=== PATIENT | female | born 2000 | race Caucasian/White ===

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

== ENCOUNTER → 2020-03-14 14:08 | Outpatient (CLI) | payer OTHER, MEDICAID, SELFPAY ==
[2020-03-14 16:41] LABS: Absolute Lymphocyte Count 1.75 X10^3/uL (0.83-4.51); Absolute Neutrophil Count 7.3 X10^3/uL (2.0-7.7); Basophil# 0.04 X10^3/uL; Basophil% 0.4 % (0-1); Eosinophil# 0.17 X10^3/uL; Eosinophils% 1.7 % (0-5); Hematocrit 33.2 % (37-47); Hemoglobin 11.2 g/dL (12.0-15.0); Lymphocyte # 1.75 X10^3/ul (4.0); Mean Corp Hgb Conc 33.7 g/dL (32-36); Mean Corpuscular Hgb 31.1 pg (27.0-32.0); Mean Corpuscular Volume 92.2 fL (81-99); Mean Platelet Vol. 8.7 fl (6.2-12.0); Monocyte# 0.45 X10^3/uL; Monocyte% 4.6 % (0-10); NRBC Flagged by Analyzer 0 % (0-5); Neutrophil # 7.29 X10^3/uL (2.7-7.7); Neutrophil % 74.9 % (47-70); Platelet Count 309 K/mm3 (150-450); RBC Distribution Width CV 12.7 % (11.6-14.6); RBC Distribution Width SD 43.3 fl (35.1-43.9); White Blood Count 9.7 K/mm3 (4.4-11.0)
[2020-03-15 11:48] LABS: HIV - WCH Non-Reactive (Nonreactive); Hepatitis B Surface Antigen Non-Reactive (Nonreactive); Hepatitis C Antibody Non-Reactive (Nonreactive); Rubella IgG Reactive (Nonreactive)
[2020-03-19 14:49] LABS: Gonococcus By Nucleic Acid AMP Negative (Negative)
[2020-03-19 14:50] LABS: Chlamydia By Nucleic Acid AMP Positive (Negative)
[2020-03-20 01:27] LABS: Prenatal RPR NONREACTIVE (NONREACTIVE)
== END ==
PROVIDERS: Visit Provider Obstetrics & Gynecology
DX: Z34.81 Encounter for supervision of other normal pregnancy, first trimester (principal); Z11.3 Encounter for screening for infections with a predominantly sexual mode of transmission
CPT/HCPCS: 36415; 85025; 86703; 86762; 86803; 87086; 87088; 87340; 87491; 87591

== ENCOUNTER → 2020-05-26 | Outpatient (CLI) | payer OTHER, SELFPAY ==
[2020-05-29 03:07] LABS: Chlamydia By Nucleic Acid AMP Negative (Negative)
[2020-05-29 09:52] LABS: Gonococcus By Nucleic Acid AMP Negative (Negative)
== END | disposition home or self-care (01) ==
LOC: LABSPEC 14:37
PROVIDERS: Visit Provider Obstetrics & Gynecology
DX: Z34.82 Encounter for supervision of other normal pregnancy, second trimester (principal)
CPT/HCPCS: 87491; 87591

== ENCOUNTER → 2020-07-17 13:08 | Outpatient (CLI) | payer OTHER, MEDICAID, SELFPAY ==
[2020-07-17 15:44] LABS: Hematocrit 32.3 % (37-47); Hemoglobin 10.5 g/dL (12.0-15.0); Mean Corp Hgb Conc 32.5 g/dL (32-36); Mean Corpuscular Hgb 31.8 pg (27.0-32.0); Mean Corpuscular Volume 97.9 fL (81-99); Mean Platelet Vol. 8.6 fl (6.2-12.0); Platelet Count 293 K/mm3 (150-450); RBC Distribution Width CV 12.4 % (11.6-14.6); RBC Distribution Width SD 44.7 fl (35.1-43.9); White Blood Count 14.1 K/mm3 (4.4-11.0)
[2020-07-17 15:46] LABS: Glucose Challenge Gest 1H 50g 79 mg/dL (70-140)
== END ==
PROVIDERS: Visit Provider Obstetrics & Gynecology
DX: Z34.82 Encounter for supervision of other normal pregnancy, second trimester (principal)
CPT/HCPCS: 36415; 82950; 85027

== ENCOUNTER 2020-08-05 16:55 | Outpatient (CLI) | payer OTHER, MEDICAID, SELFPAY ==
[2020-08-05] VITALS (8 sets, daily range): BP systolic 86; BP diastolic 53; PULSE 80–89; O2SAT 99–100
--- NOTE | 2020-08-05 17:42 | OB.TRI.HP_ITS ---
HPI - General HPI Narrative JOSÉ MIGUEL ROD, is a 19 F @ 27 1/7 weeks gestation who presents with decreased movement. No other complaints. Denies contractions, LOF or bleeding. [facility] Medical History (Updated 08/05/20 @ 17:[address] Aniya Arriaza MD) Depression HSV (herpes simplex virus) infection Home Medications vit,[id number] [Prenatabs FA] 1 tab PO DAILY 08/05/20 [History Last Taken 08/05/20 11:00] valacyclovir 1,000 mg PO DAILY 08/05/20 [History Last Taken 08/05/20 11:00] Allergy/AdvReac Type Severity Reaction Status Date / Time No Known Allergies Allergy Verified 08/05/20 17:05 Social History Smoking Status: Current every day smoker Physical Exam Const alert, oriented x3 and no apparent distress General Appearance: comfortable NST FHR Rate Baby A Baseline: 135 Variability:: Moderate Accelerations:: 15 x 15 Decelerations:: None FHR Category:: Category I Uterine Activity:: 0/10 Assessment & Plan (1) Decreased movement: QUALIFIERS: Fetus number: single or unspecified fetus Trimester: second trimester Qualified Code(s): O36.8120 - Decreased movements, second trimester, not applicable or unspecified PLAN: NST reactive, prior deceleration noted without recurrence and FHR returned to Cat I Will d/c home Reviewed movement counts and precautions for further monitoring (2) 27 weeks gestation of :
== END 2020-08-05 18:00 | disposition home or self-care (01) ==
LOC: WPOUT 16:59 → WP 17:00
PROVIDERS: Referring Provider Obstetrics & Gynecology; Visit Provider Obstetrics & Gynecology
DX: O36.8120 Decreased fetal movements, second trimester, not applicable or unspecified (principal); O98.512 Other viral diseases complicating pregnancy, second trimester; B00.9 Herpesviral infection, unspecified; O99.332 Smoking (tobacco) complicating pregnancy, second trimester; F17.200 Nicotine dependence, unspecified, uncomplicated; Z3A.27 27 weeks gestation of pregnancy
CPT/HCPCS: 59025; 59050; 99218; G0378

== ENCOUNTER → 2020-08-14 13:50 | Outpatient (CLI) | payer OTHER, MEDICAID, SELFPAY ==
[2020-08-14 15:04] LABS: Hematocrit 30.8 % (37-47); Hemoglobin 9.9 g/dL (12.0-15.0); Mean Corp Hgb Conc 32.1 g/dL (32-36); Mean Corpuscular Hgb 31.6 pg (27.0-32.0); Mean Corpuscular Volume 98.4 fL (81-99); Mean Platelet Vol. 8.4 fl (6.2-12.0); Platelet Count 246 K/mm3 (150-450); RBC Distribution Width CV 13.2 % (11.6-14.6); RBC Distribution Width SD 46.7 fl (35.1-43.9); Red Blood Count 3.13 M/mm3 (4.2-5.4); White Blood Count 13.3 K/mm3 (4.4-11.0)
[2020-08-14 15:24] LABS: Anion Gap 9 (5-15); BUN 7 mg/dL (7-18); BUN/Creat Ratio 16.4 RATIO (10-20); Calcium,Total 8.3 mg/dL (8.5-10.1); Chloride 107 mmol/L (98-107); Creatinine, Serum 0.43 mg/dL (0.55-1.02); EST Glomerular Filtration Rate 201 mL/min (>60); Est Glom Filt Rate - Afr Amer 243 mL/min (>60); Glucose 69 mg/dL (74-106); Potassium 3.7 mmol/L (3.5-5.1); Sodium Level 138 mmol/L (136-145)
== END ==
PROVIDERS: Visit Provider Obstetrics & Gynecology
DX: R42 Dizziness and giddiness (principal)
CPT/HCPCS: 36415; 80048; 85027

== ENCOUNTER → 2020-10-15 10:50 | Outpatient (CLI) | payer OTHER, MEDICAID, SELFPAY | PROVIDERS: Visit Provider Obstetrics & Gynecology | DX: Z36.85 Encounter for antenatal screening for Streptococcus B (principal) | CPT/HCPCS: 87081 ==

== ENCOUNTER 2020-11-05 18:53 | Inpatient (IN) | payer OTHER, MEDICAID, SELFPAY ==
[2020-11-05 19:33] VITALS: BP 104/60; PULSE 82
[2020-11-05 19:36] VITALS: BMI 23.2
[2020-11-05 19:39] VITALS: TEMP 36.5; O2SAT 100
[2020-11-05 19:59] LABS: Hemoglobin 9.8 g/dL (12.0-15.0); Mean Corp Hgb Conc 32.7 g/dL (32-36); Mean Corpuscular Hgb 29.5 pg (27.0-32.0); Mean Corpuscular Volume 90.4 fL (81-99); Mean Platelet Vol. 8.5 fl (6.2-12.0); POSITIVE COUNT YES; POSITIVE MORPHOLOGY YES; Platelet Count 262 K/mm3 (150-450); RBC Distribution Width CV 14.6 % (11.6-14.6); RBC Distribution Width SD 47.8 fl (35.1-43.9); Red Blood Count 3.32 M/mm3 (4.2-5.4); White Blood Count 13.7 K/mm3 (4.4-11.0)
[2020-11-05 20:02] LABS: Differential Indicated MANUAL DIFF
[2020-11-05] MEDS: miSOPROStol 25 MCG TABLET PO (20:27)
[2020-11-05 20:32] LABS: Eosinophil 1 % (0-5); Lymphocyte 16 % (19-41); Monocyte 7 % (0-10); Neutrophil-Band 1 % (0-5); Neutrophil-Segmented 75 % (47-70); Total Cells Counted 100 (MANUAL DIFF)
[2020-11-05 20:33] LABS: Anisocytosis 1+; Platelet Estimate ADEQUATE (ADEQ); Red Cell Morphology N CHROM NORMAL (NORM C&C)
[2020-11-05 20:34] LABS: Absolute Neutrophil Count 10.4 X10^3/uL (2.0-7.7)
[2020-11-05 21:25] VITALS: PULSE 77; O2SAT 99
[2020-11-05 21:26] VITALS: BP 97/57; PULSE 77; TEMP 36.2; O2SAT 98
--- NOTE | 2020-11-05 21:36 | EKG12_ITS ---
Test Reason : CP Blood Pressure : / mmHG Vent. Rate : 067 BPM Atrial Rate : 067 BPM P-R Int : 132 ms QRS Dur : 082 ms QT Int : 392 ms P-R-T Axes : 019 047 046 degrees QTc Int : 414 ms Normal sinus rhythm Normal ECG No previous ECGs available Confirmed by LANCE MCCLAIN, JASWINDER ([id number]), greeting card editor MARCUS MADRIGAL ([id number]) on 11/06/2020 1:02:37 PM Referred By: DR LESTER Confirmed By:FEDERICO LUCAS MD
[2020-11-06] VITALS (55 sets, daily range): BP systolic 77–107; BP diastolic 37–68; PULSE 62–91; RESP 14–20; TEMP 36.2–37.2; O2SAT 94–100
--- NOTE | 2020-11-06 00:42 | HP.PCM_ITS ---
History and Physical Date of Admission: 11/05/20 OG ANTEPARTUM RECORD - HISTORY AND PHYSICAL (11/06/2020) Name: ZEINAB ROD History of this : This is a 20 year old [id number] presents at 40 wks + 2 days gestation for induction. care has been remarkable for outbreaks of herpes every 4 to 6 weeks. Patient is concerned that she may have an outbreak in the next one or 2 weeks and does not want to take a chance of being required to have a . Given that she desires that we proceed with induction at this time rather than waiting until next week when she is 41 weeks gestation. OB Physician: Aniya Arriaza MD 's Physician: UNDECIDED ...................................................................... : 00 Age: 20 Address: [address] [place] [address] Phone: [phone] Insurance Carrier: [employer] [id number] Emergency Contact: DARIA ROD/SISTER [phone] ...................................................................... 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 Hx of Depression, Suicide attempt On Zoloft, started this Poor Social situation Father kicked her out, FOB not involved Smoker Tdap 08/14/20 Teen ALLERGIES: No Known Drug Allergies MEDICATIONS: doxylamine succinate 25 mg tablet 1 PO QD ferrous sulfate 325 mg (65 mg iron) tablet 1 PO bid + DHA 28 mg iron- 975 mcg-200 mg combo pack daily promethazine 12.5 mg tablet 1 PO every four to six hours PRN Nausea pyridoxine (vitamin B6) 25 mg tablet 1 PO QD valacyclovir 1 gram tablet 1 PO QD Valtrex 500 mg tablet 1 tab po bid Zoloft 50 mg tablet 1 PO QD SOCIAL HISTORY: Smoking - Uses Vapor Pen and 10 hits hour. This is less than she used to do. 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 Illicit Drug Use - Quit smoking marijuana with + UPT Sexual Activity - did not discuss sexual history Residence - lives w sister and helps w one year nephew Place of - [place], [place] Hours Worked - 40-45 Spouse-Sig Other Name - Not involved PRIOR DELIVERY HISTORY DEL DATE GEST LAB WT LB WT OZ TYPE ANES LABOR TX ANTEPARTUM FLOW CHART VISIT GE RTC FU F F OK U U DATE WK MD WKS HT PN HR M SS BP ED WT OK GL D EF ST __ ____ ___ __ __ ___ __ __ __ ___ __ __ __ ___ __ 01 Nov JMW 6 37 V + + 104/58 0 124 1+ ne S Oct JMW 1 38 + R 98/56 0 122 tr - Oct JMW 1 36 V + + 100/50 0 121 tr ne 1 50 P 11 Oct JMW 1 36 V + + 100/52 123 tr - 1 50 -2 Sep SHM 2 32 V + + 104/62 sl 116 07 Sep SHM 2 30 ? + + 90/50 sl 113 tr - Sep 01 JM 2 28 - + + 84/50 0 110 tr - July 28 JM 4 24 - + + 100/56 0 104 tr - Jun 24 JM 4 20 - on + 90/54 0 98 tr - May 21 JM 4 17 - + ? 94/60 0 99 tr - Apr 19 JM 4 13 - + O 90/56 95 tr - Mar 14 JM 4 8 - on US 84/50 92 tr - ANTEPARTUM NOTE(S): Nov 05 2020: Induce per Request, concern re HSV breakout Oct 27 2020: low pressure,cramping,decreased FM Oct 23 2020: Good FM Oct 15 2020: GBS and LARC, Good FM Sep 26 2020: Sep 10 2020: see note Aug 14 2020: see note Jul 17 2020: doing well, glucola today Jun 16 2020: comp u/s today May 26 2020: Nausea, occasional vomiting Apr 28 2020: still with nausea Mar 24 2020: mild nausea COMPREHENSIVE ANTEPARTUM NOTE(S): Nov 05 2020: Marielle is here for PNV. 40/2. Would like membranes swept. No continues ctx. No LOF. Having good FM. No edema noted. Reidien 1+/neg. LSS Oct 23 2020: H faxed to OB Oct 23 2020: Zeinab is here for PNV at 38/3. Shares that she is ready at home. Feeling well with good FM. Would like cervix check today. Having BH ctx. No LOF and states that she has not lost her mucous plug. No edema noted. Urine tr/neg. LSS Oct 15 2020: Zeinab is here for a PNV at 37 wks. Good FM. No edema present. Increased timo randall, pelvic pressure and back pain. Wonders if she can use tape for back support instead of a maternity belt. GBS today, consent signed. LARC reviewed and declined. Would like cervix check. MK Sep 26 2020: Had Tdap. No complaints. Reviewed FM, PTL. LMT Sep 26 2020: Has car seat and bassinet. Plans bassinett in room, then cosleeper later on for nursing. Discussed safe sleep precautions. c/o recent HSV outbreak despite taking Valtrex ppx. Taking 1g once daily. Suspect subtherapeutic given increased renal excretion associated with . Will give 500mg bid. If continues to have breakthrough symptoms increase to 1g bid. Denies depressed mood. Discuss Sep 10 2020: Zeinab is here for visit. Relates chest pain since last night. Notes pain is when she is flat or when she takes a breath in or out. Apical pulse is 80 and regular. Normal breath sounds. She notes some heartburn but does not think it associated. Good FM reported. Not taking her Fe supplement. Few samples of Feriva provided and will talk with pharmacy to see if we can get this covered. LMT Sep 10 2020: Advised to pick and shovel man iron, reviewed Fe deficiency anemia.Good rx card provided. PTL, ROM, FM precautions. Pt reports midchest pain, constant since last night without sob, radiation, cough, sore throat, palpitations. Advis ed to ER. She reports she is not worried about it and it is mild. Discussed PPBC, plans abstinence, then condoms as FOB is incarcerated. discussed and planned, pt note Aug 14 2020: Reviewed Tdap and plans to have today. She is frustrated with her sx of feeling like she is going to pass out all the time. She is frustrated with not being told she is anemic. Reviewed lower hgb in is normal. Can add Fe rich foods. Printout provided with foods rich in iron. Ferrous sulfate and gluconate supplements reviewed. Reviewed FM, PTL. Would like to switch to Dr CARTWRIGHT and note w Aug 14 2020: 28wk, 1hr GTT wnl. Pt with fatigue and times where she feels faint. This mostly happens with change of position and temperature. Pt hgb 10.5, educated pt on this finding. Labs today with hgb 9.9 and normal BMP. Rx Iron sent to pharmacy. Pt desires follow up with Dr. CARTWRIGHT. EILEEN Jul 17 2020: Zeinab is here for visit. She is doing well, without question or concern. Glucola today with CBC. Really happy with her weight gain of 6 lbs! LMT Jul 17 2020: 24wk, 1hr GTT today. EILEEN Jun 16 2020: 20wk, anatomy u/s wnl. Pt doing well living with FOB parents, FOB still in halfway for 3 years. Better relationship with father. 1hr GTT next visit. EILEEN May 26 2020: Zeinab is here for a PNV. Started feeling light flutters recently. Reports nausea and occasional vomiting. She has been taking a Vit B6 to help, she tried to pick and shovel man the Promethazine but states she isn't able to pay for it. She started new vitamins that do not contain folic acid, wonders if this okay. May 26 2020: 17wk, repeat G/c culture collected today. Now living on her own with FOB in halfway, doing well. EILEEN Apr 28 2020: Using OTC B6 and Unisom for sleep and nausea. Still with persistent nausea. Not using medication in chart, advised has Rx at pharmacy for those plus Phenergan. Fighting with SO that she brought with her. Needs GUERDA for prior + chlamydia. Did take medication for this. LMT Apr 28 2020: 13wk, pt with fight with FOB. FOB is going to halfway. pt tearful, feels safe at home. Discussed repeat GUERDA chlamydia testing next visit. Did not pick and shovel man nausea meds previously sent. EILEEN REVIEW OF SYSTEMS: GENERAL - Denies fever, or chills SKIN - Denies rash, new skin lesions, or change in moles EYES - Denies blurred vision, or change in visual acuity EARS - Denies ear pain, or difficulty hearing NOSE - Denies nasal congestion, discharge, or bleeding MOUTH - Denies sore throat, or difficulty swallowing NECK - Denies pain or swelling RESPIRATORY - Denies shortness of breath, cough, wheezing CARDIOVASCULAR - Denies palpitations, chest pain, orthopnea, PND, peripheral edema, syncope or claudication GASTROINTESTINAL - Denies nausea, vomiting, diarrhea, constipation, Denies abdo roberth pain, melena and or bright red blood GENITOURINARY - Denies dysuria, frequency of urination, urgency, or hesitancy MUSCULOSKELETAL - Denies joint or muscle pain, or back pain NEUROLOGICAL - Denies localized numbness, weakness, or tingling PSYCHIATRIC - Denies depression, anxiety, substance abuse or suicide attempts ENDOCRINE - Denies heat or cold intolerance, weight loss or gain, increasing thirst HEMATO-IMMUNOLOGIC - Denies easy bruising, bleeding, oral ulcerations or recurrent infections GENETICS SCREENING: Age 35+ years: No Thalassemia: No Neural Tube Defect: No Down Syndrome: No TONYA-SACHS: No Sickle Cell Disease: No Hemophilia: No Musc. Dystrophy: No Cystic Fibrosis: No-declines screening Rosamaria Chorea: No Mental Retardation: No Fragile X: No Other genetic: No Other defects: No SABs/still births: No Drugs since LMP: Yes INFECTION HISTORY: High risk AIDS: No High risk Hepatitis: No Exposed to TB: No Exposed to Herpes: No Rash/viral illness since LMP: No History of STD: Yes and Chlamydia MENSTRUAL HISTORY: *Menses Amount/Duration: 4-5Menses Regularity: RegularMenarche (Age Onset): 12* PAST SUMMARY: PARITY: 1. Total Pregnancies............ 1 2. Full Term Pregnancies........ 0 3. Premature.................... 0 4. Abortions - Induced.......... 0 5. Abortions - Spontaneous...... 0 6. Ectopics..................... 0 7. Multiple Births.............. 0 8. Living Children.............. 0 PHYSICAL EXAMINATION General Appearence: 20 yo female in no acute distress Vital Signs: AF, VSS Heart: RRR without rubs or gallops Lungs: CTA x 2 Breasts: deferred Abdomen: gravid Pelvis: Cervix: 2/50 Presentation: cephalic Station: -2 Fetus: Size: AGA Movement: present Heart: present LAB TEST(S) ORDERED SINCE:02/07/20 11/05/2020 URINE DRUG SCREEN (VISTA) 11/05/2020 TYPE AND SCREEN 11/05/2020 COVID 19 AG RAPID (RN COLLECT) 11/05/2020 CBC W/DIFF, AUTOMATED 10/18/2020 RULE OUT BETA STREP (GRP. B) 08/14/2020 CBC-COMPLETE BLOOD CNT NO DIFF 08/14/2020 BASIC METABOLIC PROFILE (BMP) 07/17/2020 GLUCOSE CHALLENGE GEST 1H 50G 07/17/2020 CBC-COMPLETE BLOOD CNT NO DIFF 05/29/2020 CHLAMYDIA/GC MAYA APTIMA 03/19/2020 RPR 03/19/2020 CHLAMYDIA/GC MAYA APTIMA 03/16/2020 CULTURE, URINE 03/15/2020 RUBELLA IGG 03/15/2020 HIV - [facility] 03/15/2020 HEPATITIS C ANTIBODY 03/15/2020 HEPATITIS B SURFACE ANTIGEN 03/14/2020 T AND S-NO CHARGE W/PNP 03/14/2020 CBC W/DIFF, AUTOMATED == ==== Order Observation Description Value Ref_Range A* Site == ==== URINE DRUG SCRE NOTE [facility]KS URINE DRUG SCRE DRUG CONFIRM ML CONFIRMATORY TESTING FOR ALL POSITIVE URINE DRUG SCREEN RESULTS WILL ONLY BE SENT OUT UPON PHYSICIAN ORDER. VISTA Urine Drug Screen methods provide only preliminary analytical test results. A more specific alternate chemical method must be used in order to obtain a confirmed analytical result. Gas chromatography/mass spectrometery (GC/MS) is the preferred confirmatory method. Clinical consideration and professional judgement should be applied to any drug of abuse test result, particularly when preliminary positive results are used. URINE TCA TESTING MUST BE ORDERED SEPARATELY. USE TEST MNEMONIC: [facility] COVID 19 AG RAP NOTE [facility]~[address] [place], [address]~ TYPE AND SCRE AB SCREEN GEL NEGATIVE ML CBC W/DIFF, AUT NOTE [facility]OOKS CBC W/DIFF, AUT ABSOLUTE NEUT 10.4 X10 3/uL 2.0-7.7 H ML CBC W/DIFF, AUT ABSOLUTE LYMPH 2.20 X10 3/uL 0.83-4.51 ML CBC W/DIFF, AUT PATH REV May foll ML RULE OUT BETA S NOTE BROOKS BASIC METABOLIC NOTE [facility] BASIC METABOLIC GLU 69 mg/dL 74-106 L ML Please note revised GLUCOSE reference range effective 04/08/2017. BASIC METABOLIC BUN 7 mg/dL 7-18 ML BASIC METABOLIC CREAT,SERUM 0.43 mg/dL 0.55-1.02 L ML The validity of the calculated GFR GFRAA in patients over 70 years has not been determined. Clinical correlation is essential. BASIC METABOLIC EST GFR 201 mL/min >60 ML Non- GFR Calc BASIC METABOLIC EST GFR - AA 243 mL/min >60 ML GFR Calc BASIC METABOLIC BUN/CRE 16.4 RATIO 10-20 ML BASIC METABOLIC CA,TOTAL 8.3 mg/dL 8.5-10.1 L ML BASIC METABOLIC NA 138 mmol/L 136-145 ML BASIC METABOLIC POTASSIUM 3.7 mmol/L 3.5-5.1 ML BASIC METABOLIC CL 107 mmol/L 98-107 ML BASIC METABOLIC CO2 22.0 mmol/L 21.0-32.0 ML BASIC METABOLIC GAP 9 5-15 ML CBC-COMPLETE BL NOTE BROOKS CBC-COMPLETE BL WBC 13.3 K/mm3 4.4-11.0 H ML CBC-COMPLETE BL RBC 3.13 M/mm3 4.2-5.4 L ML CBC-COMPLETE BL HGB 9.9 g/dL 12.0-15.0 L ML CBC-COMPLETE BL HCT 30.8 37-47 L ML CBC-COMPLETE BL MCV 98.4 fL 81-99 ML CBC-COMPLETE BL MCH 31.6 pg 27.0-32.0 ML CBC-COMPLETE BL MCHC 32.1 g/dL 32-36 ML CBC-COMPLETE BL RDW CV 13.2 11.6-14.6 ML CBC-COMPLETE BL RDW SD 46.7 fl 35.1-43.9 H ML CBC-COMPLETE BL PLT 246 K/mm3 150-450 ML CBC-COMPLETE BL MPV 8.4 fl 6.2-12.0 ML GLUCOSE CHALLEN NOTE BROOKS GLUCOSE CHALLEN GLU GEST 50G 1H 79 mg/dL 70-140 ML CBC-COMPLETE BL NOTE BROOKS CBC-COMPLETE BL WBC 14.1 K/mm3 4.4-11.0 H ML CBC-COMPLETE BL RBC 3.30 M/mm3 4.2-5.4 L ML CBC-COMPLETE BL HGB 10.5 g/dL 12.0-15.0 L ML CBC-COMPLETE BL HCT 32.3 37-47 L ML CBC-COMPLETE BL MCV 97.9 fL 81-99 ML CBC-COMPLETE BL MCH 31.8 pg 27.0-32.0 ML CBC-COMPLETE BL MCHC 32.5 g/dL 32-36 ML CBC-COMPLETE BL RDW CV 12.4 11.6-14.6 ML CBC-COMPLETE BL RDW SD 44.7 fl 35.1-43.9 H ML CBC-COMPLETE BL PLT 293 K/mm3 150-450 ML CBC-COMPLETE BL MPV 8.6 fl 6.2-12.0 ML CHLAMYDIA/GC NA NOTE BROOKS CHLAMYDIA/GC NA CHLAMY,NUC ACID Negative Negative LCI CHLAMYDIA/GC NA GC BY NUC ACID Negative Negative LCI Performed at: = - [facility] [id number] [employer]: Nakita Patterson MD, Phone: [phone] RPR NOTE BROOKS RPR RPR NONREACTIVE NONREACTIVE ML CHLAMYDIA/GC NA NOTE BROOKS CHLAMYDIA/GC NA CHLAMY,NUC ACID Positive Negative H LC RESULTS CALLED TO SANG SAHU 03/19/20 1450 Idalmis Cohen. REPORT READ BACK BY SAME. CHLAMYDIA/GC NA GC BY NUC ACID Negative Negative LC Performed at: = - [facility] [place] [id number] [employer]: Nakita Patterson MD, Phone: [phone] CULTURE, URINE NOTE BOROKS HEPATITIS C ANT NOTE BROOKS HEPATITIS C ANT HEPATITIS C AB Non-Reactive Nonreactive ML Non Reactive: < 0.8 Equivocal: >/= 0.8 to < 1.0 Reactive: >/= 1.0 The CDC recommends that a reactive/equivocal HCV antibody result be followed up by the HCV Nucleic Acid Amplification test (254117) HEPATITIS B ALEXIS NOTE BROOKS HEPATITIS B ALEXIS HEPB SURFACE AG Non-Reactive Nonreactive ML HIV - [facility] NOTE BROOKS HIV - [facility] HIV - [facility] Non-Reactive Nonreactive ML RUBELLA IGG NOTE BROOKS RUBELLA IGG RUBELLA IGG Reactive Nonreactive ML Antibody Results Interpretation of Immune Status Non Reactive Presumed Non-Immune Equivocal Equivocal Reactive Presumed Immune Reason for Type AND Screen/Red Cells: Surgery? N [facility]~[address] [place], [address]~ T AND BLOOD TYPE GEL O POSITIVE N ML T AND AB SCREEN GEL NEGATIVE N ML CBC W/DIFF, AUT NOTE BROOKS CBC W/DIFF, AUT WBC 9.7 K/mm3 4.4-11.0 ML CBC W/DIFF, AUT RBC 3.60 M/mm3 4.2-5.4 L ML CBC W/DIFF, AUT HGB 11.2 g/dL 12.0-15.0 L ML CBC W/DIFF, AUT HCT 33.2 % 37-47 L ML CBC W/DIFF, AUT MCV 92.2 fL 81-99 ML CBC W/DIFF, AUT MCH 31.1 pg 27.0-32.0 ML CBC W/DIFF, AUT MCHC 33.7 g/dL 32-36 ML CBC W/DIFF, AUT RDW CV 12.7 % 11.6-14.6 ML CBC W/DIFF, AUT RDW SD 43.3 fl 35.1-43.9 ML CBC W/DIFF, AUT PLT 309 K/mm3 150-450 ML CBC W/DIFF, AUT MPV 8.7 fl 6.2-12.0 ML CBC W/DIFF, AUT NEUT% 74.9 % 47-70 H ML CBC W/DIFF, AUT LY% 18.0 % 19-41 L ML CBC W/DIFF, AUT MONO% 4.6 % 0-10 ML CBC W/DIFF, AUT EO% 1.7 % 0-5 ML CBC W/DIFF, AUT BASO% 0.4 % 0-1 ML CBC W/DIFF, AUT IM GRAN % 0.400 % 0.0-0.9 ML IG% - Immature Granulocytes (promyelocytes, myelocytes and metamyelocytes) > 1% indicates that a LEFT SHIFT is Present. CBC W/DIFF, AUT ABSOLUTE NEUT 7.3 X10 3/uL 2.0-7.7 ML CBC W/DIFF, AUT ABSOLUTE LYMPH 1.75 X10 3/uL 0.83-4.51 ML CBC W/DIFF, AUT NRBC, FLAGGED 0 % 0-5 ML *Negative results from patients with symptom onset beyond five days should be treated as presumptive and confirmed by a molecular assay if clinically necessary. Negative results should not be used as the sole basis for treatment or for patient management. COVID 19 AG RAPID (RN COLLECT) *Positive results do not differentiate between SARS-CoV and SARS-CoV-2. If differentation of the specific SARS virus is desired an additional sample and an additional order is required. COVID 19 AG RAPID (RN COLLECT) * This test has not been FDA cleared or approved; the test has been authorized by FDA under an Emergency Use Authorization (EAU) for use by laboratories certified under CLIA that meet the requirements to perform moderate, high, or waived complexity tests. COVID 19 AG RAPID (RN COLLECT) Normal Reference Range: Negative SARS-CoV-2 (COVID 19) Negative RAPID METHOD Quidel Irene Analyzer ELVIA, lateral flow immunofluorescent O POSITIVE Group B Beta Streptococcus is not isolated. Urine Culture ORGANISM 1: Presumptive Lactobacillus sp. [place] Count 50,000-80,000 == ==== Impression /Plan: 40 wks + 3 days intrauterine for Cytotec induction. Preparations in progress for delivery.
[2020-11-06 00:44] LABS: Amphetamine Urine VISTA NEGATIVE (<1000 ng/mL); Barbiturate Urine VISTA NEGATIVE (< 200 ng/mL); Benzodiazepine Urine VISTA NEGATIVE (< 200 ng/mL); Cocaine Urine VISTA NEGATIVE (< 300 ng/mL); Ecstacy Urine VISTA NEGATIVE (< 500 ng/mL); Methadone Urine VISTA NEGATIVE (< 300 ng/mL); PCP Urine VISTA NEGATIVE (< 25 ng/mL); THC Urine VISTA NEGATIVE (< 50 ng/mL); Vista UDS pH Range 7
[2020-11-06] MEDS: Mag Hydrox/Al Hydrox/Simeth 30 ML UDC PO (01:19)
[2020-11-06] MEDS: Lactated Ringers 1,000 ML 50 ML IV (02:05)
[2020-11-06] MEDS: Oxytocin 30 units/NS 500 ml 30 UNITS/500 ML IV.SOLN IV (02:05)
--- NOTE | 2020-11-06 08:50 | PCM.PN.OB ---
Subjective Subjective Patient cervix is 2+, 80% effaced, -2 station with cervix now anterior. Rupture of membranes with scant clear fluid noted. Continuing Pitocin augmentation. Expect spontaneous vaginal delivery Objective Data Objective Data Vital Signs: Vital Signs Temp Pulse BP Pulse Ox 97.8 F 78 103/67 98 11/06/20 08:42 11/06/20 08:41 11/06/20 08:41 11/06/20 07:32 Weight: 123 lb Body Mass Index (BMI) 23.2 Intake & Output: Intake and Output for Last 24 Hours 11/04/20 11/05/20 11/06/20 23:59 23:59 23:59 Intake Total 8.33 / 8.33 Balance 8.33 / 8.33 Lab / Micro Data Result Diagrams: 11/05/20 19:40 Labs: Laboratory Results - last 24 hr 11/05/20 19:40: WBC 13.7 H, RBC 3.32 L, Hgb 9.8 L, Hct 30.0 L, MCV 90.4, MCH 29.5, MCHC 32.7, RDW Std Deviation 47.8 H, RDW Coeff of Osmin 14.6, Plt Count 262, MPV 8.5, Neut % (Auto) Not Reportable, Absolute Neuts (auto) 10.4 H, Absolute Lymphs (auto) 2.20, Total Counted 100, Neutrophils % (Manual) 75 H, Band Neutrophils % 1, Lymphocytes % (Manual) 16 L, Monocytes % (Manual) 7, Eosinophils % (Manual) 1, Diff Path Review May foll, Platelet Estimate ADEQUATE, RBC Morphology N CHROM, Anisocytosis 1+ 11/05/20 19:40: Blood Type O POSITIVE, Antibody Screen NEGATIVE 11/06/20 00:05: Urine Opiates Screen NEGATIVE, Urine Methadone Screen NEGATIVE, Ur Barbiturates Screen NEGATIVE, Ur Phencyclidine Scrn NEGATIVE, Ur Amphetamines Screen NEGATIVE, U Methamphetamin-MDMA NEGATIVE, U Benzodiazepines Scrn NEGATIVE, Urine Cocaine Screen NEGATIVE, U Cannabinoids Screen NEGATIVE, Ur Drug Screen Comment Micro: Microbiology 11/05/20 19:50 Nasal Secretion SARS-CoV-2 Antigen (Rapid) - Final
[2020-11-06] MEDS: Lactated Ringers 500 ML 999 ML IV (09:05)
[2020-11-06] MEDS: Docusate Sodium 100 MG Capsule PO (09:09)
[2020-11-06] MEDS: fentaNYL-bupivacaine (epidural) 100 ML BAG EPIDURAL (10:02)
--- NOTE | 2020-11-06 11:11 | PCM.PN.OB ---
Subjective Subjective Patient on hands and knees, comfortable with epidural Objective Data Objective Data Vital Signs: Vital Signs Temp Pulse BP Pulse Ox 98.0 F 83 105/59 L 95 11/06/20 10:05 11/06/20 11:06 11/06/20 11:06 11/06/20 10:56 Weight: 123 lb Body Mass Index (BMI) 23.2 Intake & Output: Intake and Output for Last 24 Hours 11/04/20 11/05/20 11/06/20 23:59 23:59 23:59 Intake Total 929.99 / 929.99 Balance 929.99 / 929.99 Lab / Micro Data Result Diagrams: 11/05/20 19:40 Labs: Laboratory Results - last 24 hr 11/05/20 19:40: WBC 13.7 H, RBC 3.32 L, Hgb 9.8 L, Hct 30.0 L, MCV 90.4, MCH 29.5, MCHC 32.7, RDW Std Deviation 47.8 H, RDW Coeff of Osmin 14.6, Plt Count 262, MPV 8.5, Neut % (Auto) Not Reportable, Absolute Neuts (auto) 10.4 H, Absolute Lymphs (auto) 2.20, Total Counted 100, Neutrophils % (Manual) 75 H, Band Neutrophils % 1, Lymphocytes % (Manual) 16 L, Monocytes % (Manual) 7, Eosinophils % (Manual) 1, Diff Path Review May foll, Platelet Estimate ADEQUATE, RBC Morphology N CHROM, Anisocytosis 1+ 11/05/20 19:40: Blood Type O POSITIVE, Antibody Screen NEGATIVE 11/06/20 00:05: Urine Opiates Screen NEGATIVE, Urine Methadone Screen NEGATIVE, Ur Barbiturates Screen NEGATIVE, Ur Phencyclidine Scrn NEGATIVE, Ur Amphetamines Screen NEGATIVE, U Methamphetamin-MDMA NEGATIVE, U Benzodiazepines Scrn NEGATIVE, Urine Cocaine Screen NEGATIVE, U Cannabinoids Screen NEGATIVE, Ur Drug Screen Comment Micro: Microbiology 11/05/20 19:50 Nasal Secretion SARS-CoV-2 Antigen (Rapid) - Final Physical Exam Const alert, oriented x3, average body habitus, healthy appearing and well nourished HEENT normocephalic and moist oral mucous membranes Head and Scalp: atraumatic Face and Sinus: normal facial exam Neck full ROM Resp normal respiratory effort, no retractions and no use of accessory muscles Extremity normal to inspection, full ROM and no clubbing, cyanosis or edema Skin no rashes or lesions noted Psych mental status grossly normal, affect normal, speech normal and activity/motor behavior normal Assessment & Plan (1) : PLAN: Arrived after deceleration was noted. Patient hands and knees. NST now category 1. Will hold Pitocin for 15 to 30 minutes. Cervical exam 4 cm per nursing. We will continue Pitocin assuming category 1 tracing after 15 to 30 minutes
[2020-11-06] MEDS: Methylergonovine 0.2 MG/ML Ampul IM (11:40)
--- NOTE | 2020-11-06 12:11 | OP.PCM_ITS ---
Assessment & Plan (1) delivery delivered: Details Operative Information Date of Procedure: 11/06/20 Pre-Operative Diagnosis: 1. 40 3/7 weeks gestation 2. Nonreassuring heart rate tracing Post-Operative Diagnosis: 1. 40 3/7 weeks gestation 2. Nonreassuring heart rate tracing Indications for : Nonreassuring Status Indications Narrative: 20-year-old 1 presents at 40-3/7 weeks gestational age for scheduled induction of labor. She had undergone amniotomy and Pitocin was started. She progressed to 4 to 5 cm with category 2 he art rate tracing. She subsequently had deceleration down to the 40s beats per minute and was transferred to the operating room with continued prolonged deceleration. She was counseled and advised to proceed with section. Procedural risks, benefits, indications were reviewed. Patient agreed to proceed. Classification: ABDIEL Procedure Type: low transverse pharmaceutical laboratory technician #1: Jaret Womack Type of Anesthesia: Epidural Anesthesiologist: Rufino Higginbotham Antibiotic Given: Ancef 2 grams IV x1 Drain: Marinelli to straight drain Estimated Blood Loss: 900ml Fluids Replaced: 1500 ml Findings Description of Procedure: The patient was taken to the operating room and spinal analgesia was administered. She is placed in a dorsal supine position with left lateral tilt. The perineum and abdomen were prepped and draped in sterile fashion. And the spinal was found to be adequate. A Pfannenstiel incision was made using a scalpel and brought down to incise the subcutaneous tissue and rectus fascia at the midline. Subcutaneous tissue was bluntly dissected off the fascia laterally. The fascial incision was dissected laterally and cephalad using curved Varela scissors. The superior leaflet of the rectus fascia was grasped using Cathryn clamps and bluntly dissected and sharply dissected from the underlying rectus muscle. In a similar fashion the inferior rectus fascia was dissected from the underlying muscle. The rectus muscles were bluntly at the midline. The peritoneum was identified and entered [sharply]. The bladder blade was placed into the abdomen and the vesicouterine peritoneal fold identified. The fold was incised and a bladder flap created. Bladder blade was then repositioned to the abdomen. A low transverse hysterotomy was made using the [Metzenbaum scissors] to level of the membranes. The hysterotomy was extended bluntly cephalad and caudad. The membranes were then ruptured revealing clear fluid. The head was elevated and brought to the level of the hysterotomy and the delivered revealing vigorous [male] infant. The cord was doubly clamped and cut after 30 seconds. The infant was passed to awaiting [nursery personnel]. The placenta was [expressed] from the uterus and appeared intact on inspection. The uterus was cleared of debris. The hysterotomy was then repaired using 0 Vicryl running lock suture. A second imbricating layer was also placed for additional hemostasis. The bladder blade was removed. The anterior cul-de-sac was cleared of debris. The peritoneum reapproximated using 2-0 Vicryl running suture. The rectus fascia was closed using 0 Vicryl running suture. The subcutaneous tissue was reapproximated using 2-0 Vicryl. The skin was closed using 4-0 Monocryl subcuticularly by the SURFACE PLATE FINISHER under my supervision. Mepilex occlusive dressing was placed over the incision. The fundus was firm. The patient was then transferred to the recovery room without complication. Sponge, instrument, and needle counts were correct ?2. Presentation: Positive for Vertex Amniotic Membrane Rupture Type: Artificial Amniotic Fluid Description: Clear Placental Delivery Description: Expressed Placenta Disposition: [facility] Cord Vessel Description: 3 Vessels Cord Entanglement: None Cord Gases: ABG and VBG Infant A Gender: Female (1 minute): 9 (5 minute): 9 Delayed Cord Clamping: Yes Complications Risks of Surgery Discussed w/Patient: Bleeding, Anesthesia Risks, Infection and Injury to surrounding structure(s) including bowel and bladder Complications: None
[2020-11-06] MEDS: Oxytocin 30 units/NS 500 ml 30 UNITS/500 ML IV.SOLN 167 UNITS IV (12:35)
[2020-11-06] MEDS: Ketorolac 30 MG/ML Syringe IV ×2 (12:53→18:48)
[2020-11-06 13:03] LABS: Pathologist Review Reviewed
--- NOTE | 2020-11-06 13:29 | CM.ED ---
SW Note SW referral Source: [employer] response Referral Reason: [employer] SW responded to [facility]. SW met with patient's sister, who was patient's support person. SW provided emotional support. Sister said that FOTj is currently incarcerated for 3 years but patient and FOB talk daily. Sister said that FOB's mother is in the room waiting for patient. SW provided support to patient's sister until the patient's sister was advised she could go back into the OR room. Of note, patient's sister advised that when she gave the newborns heart rate also dropped so she is familiar with the situation with her sister. Plan: Emotional Support Provided Glory BLOCK
--- NOTE | 2020-11-06 13:40 | NURSING ---
Patient denies lightheadedness or dizziness.
--- NOTE | 2020-11-06 13:45 | NURSING ---
Report given to Schuyler Yepez RN who will assume care at this time.
[2020-11-06] MEDS: Lactated Ringers 1,000 ML 100 ML IV (15:39)
[2020-11-06] MEDS: Acetaminophen 500 MG Tablet 1000 MG PO (18:48)
[2020-11-07] VITALS (9 sets, daily range): BP systolic 79–100; BP diastolic 35–64; PULSE 55–77; RESP 16; TEMP 36.2–37; O2SAT 95–100
[2020-11-07] MEDS: Acetaminophen 500 MG Tablet 1000 MG PO ×4 (00:28→18:50)
[2020-11-07] MEDS: 0.9% Saline Lock 10 ML Syringe IV ×3 (00:29→15:03)
[2020-11-07] MEDS: Ketorolac 30 MG/ML Syringe IV ×2 (00:29→06:26)
[2020-11-07 06:54] LABS: Hematocrit 23.4 % (37-47); Hemoglobin 7.5 g/dL (12.0-15.0); Mean Corp Hgb Conc 32.1 g/dL (32-36); Mean Corpuscular Hgb 29.6 pg (27.0-32.0); Mean Corpuscular Volume 92.5 fL (81-99); Mean Platelet Vol. 8.4 fl (6.2-12.0); Platelet Count 194 K/mm3 (150-450); RBC Distribution Width CV 14.7 % (11.6-14.6); RBC Distribution Width SD 49.8 fl (35.1-43.9); Red Blood Count 2.53 M/mm3 (4.2-5.4); White Blood Count 15.8 K/mm3 (4.4-11.0)
--- NOTE | 2020-11-07 09:00 | PCM.PN.OB ---
Subjective Subjective [place] dizziness yesterday, now resolved. OOB, ambulating without difficulty. Denies nausea, vomiting. Her pain is well controlled. Passing flatus, no bowel movement yet. Denies heavy lochia. She is . Objective Data Objective Data Vital Signs: Vital Signs Temp Pulse Resp BP Pulse Ox 97.7 F L 74 16 86/44 L 96 11/07/20 08:14 11/07/20 08:20 11/07/20 08:14 11/07/20 08:20 11/07/20 08:14 Oxygen Delivery Method Room Air Weight: 55.792 kg Body Mass Index (BMI) 23.2 Intake & Output: Intake and Output for Last 24 Hours 11/05/20 11/06/20 11/07/20 23:59 23:59 23:59 Intake Total 2442.16 / 2442.16 Output Total 1400 / 1400 400 / 400 Balance 1042.16 / 1042.16 -400 / -400 Lab / Micro Data Result Diagrams: 11/07/20 06:30 Labs: Laboratory Results - last 24 hr 11/05/20 19:40: Diff Path Review Reviewed 11/07/20 06:30: WBC 15.8 H, RBC 2.53 L, Hgb 7.5 L, Hct 23.4 L, MCV 92.5, MCH 29.6, MCHC 32.1, RDW Std Deviation 49.8 H, RDW Coeff of Osmin 14.7 H, Plt Count 194, MPV 8.4 Micro: Microbiology 11/05/20 19:50 Nasal Secretion SARS-CoV-2 Antigen (Rapid) - Final Physical Exam Const alert, oriented x3 and no apparent distress Resp normal respiratory effort, normal air movement and clear to auscultation bilaterally Cardio regular rate, regular rhythm, S1 normal heart sound and S2 normal heart sound GI normal to inspection, nondistended, normoactive bowel sounds, soft to palpation, non-tender and non-distended GI Narrative: incisional dressing c/d/i, lochia scant Manual OB Exam: other lochia scant Uterus Palpation: uterus fundus firm Extremity no calf tenderness Assessment & Plan (1) delivery delivered: PLAN: POD#1 s/p PLTCS doing well -O positive, Rubella immune - -Routine postop care -Hgb 7.5, repeat tomorrow am
--- NOTE | 2020-11-07 11:43 | PCM.DC ---
Discharge Instructions Diet Discharge Diet: No restrictions Activity May resume sexual activity in: 4-6 weeks Lifting Restrictions: 20 pounds Dressing / Incision Call your doctor if your incision/area has: Continuous Slow Oozing, Sudden Increased Bleeding, Increased Pain/ Swelling, Increased Redness and Foul Smelling Discharge Call your doctor if you observe: Fever of 101 or Higher, Inability to urinate, Inability to have a bowel movement and Using more than 1 pad per hour Follow Up Care Please Follow Up With: Aniya Gutierrez MD When: Call [phone] for appointment to be seen in 2 weeks. Test Results: Test results from this visit will be discussed in further detail at your follow-up appointment, if applicable. Discharge Plan Admission Admit Date/Time: 11/05/20 18:53 Primary Reason for Your Visit: Attending Provider: Shawn Herbert Primary Care Provider: Care Physician,Vernell Primary Discharge Orders/Prescriptions Prescriptions: New oxycodone 5 mg capsule 5 mg PO Q6H PRN (Reason: pain) 7 Days Qty: 10 RF: 0 docusate sodium 100 mg tablet 100 mg PO BID PRN (Reason: constipation) Qty: 60 RF: 1 Continued Prenatabs FA 29-1 mg Tablet 1 tab PO DAILY RF: 0 valacyclovir 1,000 MG tablet 1,000 mg PO DAILY RF: 0 sertraline 50 mg tablet 50 mg PO DAILY RF: 0 Referrals / Follow Up: Care Physician,No Primary [Primary Care Provider] - Disposition Disposition (needs filled in before D/C Order can be placed): Home, Self Care
[2020-11-07] MEDS: Senna/Docusate Sodium 1 Tablet PO (12:51)
[2020-11-07] MEDS: Ibuprofen 600 MG Tablet PO ×2 (12:51→18:50)
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
--- NOTE | 2020-11-07 17:30 | CASEMGMT ---
Social Work Labor and Delivery Unit Called [facility] children services and spoke with Radha Rincon in the intake department. [phone], extension [phone]. Referral due to reports that marijuana use into the fourth trimester. Brief maternal and histories provided including additional risk factors which include maternal mental health, changes in housing during , FOB's incarceration, and maternal history with children services as a minor. MOB okay for discharge with baby over the weekend. If concerns arise however prior to discharge social work does remain available. Plan: MOB and infant to discharge when ready. MOB has been provided with resources for home-going. MOB already on an antidepressant, and declines referral for counseling. Reports intent to remain abstinent of marijuana. Children services has been made aware of his family. Will monitor for infant's meconium drug screen results. -LES Tellez, COIN PURSE FRAMER *This note was generated with [employer] dictation software. It may contain incorrect words, spelling, and punctuation that were not noted in review of the chart prior to signing*
[2020-11-07] MEDS: Sertraline 50 MG Tablet PO (22:44)
[2020-11-08] MEDS: Acetaminophen 500 MG Tablet 1000 MG PO ×2 (01:00→06:38)
[2020-11-08] MEDS: Ibuprofen 600 MG Tablet PO ×2 (01:00→06:38)
[2020-11-08 02:00] VITALS: BP 97/54; PULSE 72; RESP 16; TEMP 36.4; O2SAT 99
[2020-11-08 06:52] LABS: Hematocrit 21.5 % (37-47); Hemoglobin 6.8 g/dL (12.0-15.0); Mean Corp Hgb Conc 31.6 g/dL (32-36); Mean Corpuscular Hgb 29.4 pg (27.0-32.0); Mean Corpuscular Volume 93.1 fL (81-99); Mean Platelet Vol. 8.4 fl (6.2-12.0); Platelet Count 180 K/mm3 (150-450); RBC Distribution Width CV 15.1 % (11.6-14.6); RBC Distribution Width SD 50.4 fl (35.1-43.9); Red Blood Count 2.31 M/mm3 (4.2-5.4); White Blood Count 13.6 K/mm3 (4.4-11.0)
[2020-11-08 08:19] VITALS: BP 101/56; PULSE 70; RESP 16; TEMP 36.9; O2SAT 99
[2020-11-08] MEDS: Senna/Docusate Sodium 1 Tablet PO (10:14)
--- NOTE | 2020-11-08 10:46 | PCM.PN.OB ---
Subjective Subjective Patient without complaints. Denies any vaginal bleeding. No orthostatic symptoms. Wants to go home today. Objective Data Objective Data Vital Signs: Vital Signs Temp Pulse Resp BP Pulse Ox 98.5 F 70 16 101/56 L 99 11/08/20 08:19 11/08/20 08:19 11/08/20 08:19 11/08/20 08:19 11/08/20 08:19 Oxygen Delivery Method Room Air Weight: 123 lb Body Mass Index (BMI) 23.2 Intake & Output: Intake and Output for Last 24 Hours 11/06/20 11/07/20 11/08/20 23:59 23:59 23:59 Intake Total 2442.16 / 2442.16 0 / 0 Output Total 1400 / 1400 750 / 750 Balance 1042.16 / 1042.16 -750 / -750 Lab / Micro Data Result Diagrams: 11/08/20 06:45 Labs: Laboratory Results - last 24 hr 11/08/20 06:45: WBC 13.6 H, RBC 2.31 L, Hgb 6.8 L, Hct 21.5 L, MCV 93.1, MCH 29.4, MCHC 31.6 L, RDW Std Deviation 50.4 H, RDW Coeff of Osmin 15.1 H, Plt Count 180, MPV 8.4 Micro: Microbiology 11/05/20 19:50 Nasal Secretion SARS-CoV-2 Antigen (Rapid) - Final Assessment & Plan (1) delivery delivered: PLAN: Doing well postoperative day #2 status post section for distress. Will discharge to home with routine instructions. Continue iron supplement at home.
--- NOTE | 2020-11-08 10:53 | PCM.DC.SUM ---
Providers Date of Admission: 11/05/20 Primary Care Physician: Vernell Primary Care Phys Reason For Visit: INDUCTION Diagnosis Discharge Diagnosis (1) delivery delivered: Status: Acute Code(s): O82 - Encounter for delivery without indication Medications at Discharge Home Medications Prenatabs FA 1 tab PO DAILY 08/05/20 valacyclovir 1,000 mg PO DAILY 08/05/20 sertraline 50 mg PO DAILY 11/05/20 docusate sodium 100 mg PO BID PRN #60 tab 11/07/20 oxycodone 5 mg PO Q6H PRN 7 Days #10 cap 11/07/20 Hospital Course Summary of Care Provided Hospital Course: Patient presented for induction at 40+ weeks gestation. She progressed to 4 cm and had deep variable deceleration and emergency section was performed without complication. the patient did well was felt that she was ready for discharge on postoperative day #2. Hemoglobin upon presentation was approximately 9.8 and it drifted down to 6.8 after delivery but the patient remained asymptomatic without any orthostatic changes. She was instructed to use iron supplementation at home. Weight / BMI Weight Weight: 123 lb Body Mass Index (BMI) 23.2 ABG / Lab / Microbiology Data Result Diagrams: 11/08/20 06:45 Laboratory: Laboratory Results - last 24 hr 11/08/20 06:45: WBC 13.6 H, RBC 2.31 L, Hgb 6.8 L, Hct 21.5 L, MCV 93.1, MCH 29.4, MCHC 31.6 L, RDW Std Deviation 50.4 H, RDW Coeff of Osmin 15.1 H, Plt Count 180, MPV 8.4 Microbiology: Microbiology 11/05/20 19:50 Nasal Secretion SARS-CoV-2 Antigen (Rapid) - Final D/C Instructions Discharge Diet: No restrictions May resume sexual activity in: 4-6 weeks Call your doctor if your incision/area has: Continuous Slow Oozing, Sudden Increased Bleeding, Increased Pain/ Swelling, Increased Redness and Foul Smelling Discharge Call your doctor if you observe: Fever of 101 or Higher, Inability to urinate, Inability to have a bowel movement and Using more than 1 pad per hour Please Follow Up With: Aniya Gutierrez MD When: Call [phone] for appointment to be seen in 2 weeks. Meaningful Use Info Meaningful Use Diagnoses (Choose all that apply): None applicable Discharge Plan Admission Admit Date/Time: 11/05/20 18:53 Primary Reason for Your Visit: Attending Provider: Shawn Herbert Primary Care Provider: Care PhysicianVernell Primary Discharge Orders/Prescriptions Prescriptions: New oxycodone 5 mg capsule 5 mg PO Q6H PRN (Reason: pain) 7 Days Qty: 10 RF: 0 docusate sodium 100 mg tablet 100 mg PO BID PRN (Reason: constipation) Qty: 60 RF: 1 Continued Prenatabs FA 29-1 mg Tablet 1 tab PO DAILY RF: 0 valacyclovir 1,000 MG tablet 1,000 mg PO DAILY RF: 0 sertraline 50 mg tablet 50 mg PO DAILY RF: 0 Referrals / Follow Up: Care Physician,No Primary [Primary Care Provider] - Disposition Disposition (needs filled in before D/C Order can be placed): Home, Self Care
--- NOTE | 2020-11-12 13:13 | NURSING ---
no answer on follow up phone call. left voicemail.
--- NOTE | 2020-11-17 13:38 | CASEMGMT ---
Social Work Labor and Delivery Unit Meconium drug screen results back and negative for drugs of abuse. No further referrals are indicated. -LES Tellez, ICU RN
== END 2020-11-08 11:50 | disposition home or self-care (01) | DRG 540 ==
PROVIDERS: Obstetrics & Gynecology; Admitting Provider Obstetrics & Gynecology; Visit Provider Obstetrics & Gynecology
DX: O76 Abnormality in fetal heart rate and rhythm complicating labor and delivery (principal); Z37.0 Single live birth; Z3A.40 40 weeks gestation of pregnancy; O98.32 Other infections with a predominantly sexual mode of transmission complicating childbirth; O99.324 Drug use complicating childbirth; A60.09 Herpesviral infection of other urogenital tract; F32.9 Major depressive disorder, single episode, unspecified; O99.340 Other mental disorders complicating pregnancy, unspecified trimester; Z79.899 Other long term (current) drug therapy; O99.334 Smoking (tobacco) complicating childbirth; F17.290 Nicotine dependence, other tobacco product, uncomplicated
CPT/HCPCS: 59025; 59050; 80307; 85025; 85027; 86850; 86900; 86901; 87426; 93005; 99218; 99251; J7120; A4216; G0378; G0463

== ENCOUNTER 2024-03-28 03:56 | Emergency (ER) | payer SELFPAY ==
[2024-03-28 03:58] VITALS: BP 129/94; PULSE 65; RESP 18; TEMP 36.6; O2SAT 100; BMI 19.6
--- NOTE | 2024-03-28 04:06 | EX.ED.VIS.PS ---
HPI HPI - Psych History of Present Illness Chief Complaint: Anxiety Informant: patient Onset/Context/Timing Onset: Weeks (3) Context: Gradual Onset Narrative Narrative: 23-year-old female presenting at 4 AM because she cannot sleep due to panic attack that has been going on for 3 weeks but worse in the past week. When asked why she presents now, this morning, she states nothing else specific. She has had no medications to treat this with in the past 3 weeks, she has a therapy appointment in 2 days and states she cannot wait. She does not take anything to prevent panic or anxiety attacks. She was prescribed something in the past that did not work so she stopped taking it but does not remember what it was. She denies suicidal homicidal ideation, denies hallucinations. She has had panic attacks like this in the past but not this bad. They have been random and without triggers in the past similar to now. Denies any physical symptoms, recent illness. [facility] Medical History Physical exam, pre-employment delivery delivered Chlamydia infection affecting Genital herpes affecting Anxiety HSV (herpes simplex virus) infection Depression Home Medications ?Medication ?Instructions ?Recorded ?Last Taken ?Type hydroxyzine pamoate 25 mg capsule 50 mg (2 x 25 mg) PO TID PRN PRN 03/28/24 Unknown Rx Anxiety #20 CAPSULES Allergy/AdvReac Type Severity Reaction Status Date / Time No Known Allergies Allergy Verified 03/28/24 03:57 Surgical History History of surgery Social History Smoking Status: Current every day smoker tobacco type: e-cigarettes ROS ROS ED Constitutional Constitutional ED: Reports other Details: Insomnia due to anxiety ; Denies chills or fever(s) Eyes Eyes: Denies change in vision or diplopia ENT ENT ED: Denies rhinorrhea or sore throat Cardiovascular Cardiovascular: Denies chest pain or palpitations Respiratory/Chest Respiratory/Chest: Denies cough or dyspnea Gastrointestinal Gastrointestinal: Denies abdominal pain, diarrhea, nausea or vomiting Genitourinary Genitourinary ED: Denies dysuria or hematuria Musculoskeletal Musculoskeletal: Denies back pain or neck pain Integumentary Denies abscess or rash Neurologic Neurologic: Denies headache(s), paresthesias or weakness Psychiatric Psychiatric: Reports anxiety; Denies suicidal ideation or suicidal thoughts EXAM Physical Exam Const Vital Signs: 03/28/24 03:58 Temperature 97.8 F Temperature Source Oral Pulse Rate 65 Respiratory Rate 18 Blood Pressure 129/94 H Blood Pressure Mean 105 Pulse Ox 100 Oxygen Delivery Method Room Air Positive well nourished and well developed General Appearance ED: well developed and NAD HEENT Reports moist mucous membranes normocephalic and atraumatic Eyes PERRL and EOMs intact bilaterally Neck full ROM and supple Resp normal respiratory effort and clear to auscultation bilaterally Cardio regular rate, regular rhythm and no murmurs GI non-tender and non-distended Auscultation: normoactive bowel sounds Palpation: soft Back/Spine no CVA tenderness General Back: other FROM Extremity normal to inspection General Extremety ED: Negative for edema, pulses abnormal or tenderness General Extremity: Negative for edema or pulses abnormal Neuro oriented x3, CN's II-XII intact bilaterally, no sensory deficits noted and gait normal Sensorium / Orientation: awake and alert Motor Exam: strength 5/5 throughout Psych thought process normal, cooperative, denies hallucinations, denies homicidal ideation and denies suicidal ideation Appearance: grossly normal, appropriate and well kempt Activity / Motor Behavior: appropriate eye contact and fidgetting Speech: pressured Mood & Affect: anxious Skin no rashes or lesions noted and no wounds MDM MDM MDM Narrative Medical decision making narrative: Patient's vital signs and physical exam are normal. I am happy to treat her anxiety now, however she drove herself and she is alone. For that reason I am comfortable giving her a dose of hydroxyzine and allowing her to immediately drive home, but not Ativan. 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 She declines taking hydroxyzine and wants to leave. Discharge Plan Triage Chief Complaint: Anxiety ED Provider: Enoc Vicente Dx/Rx/DC Orders Clinical Impression: Anxiety Instructions: Anxiety Disorders Tx Prescriptions: New hydroxyzine pamoate 25 mg capsule 50 mg PO TID PRN PRN (Reason: Anxiety) Qty: 20 0RF Primary Care Provider: Care Physician,Vernell Primary Referrals: Therapist, your [Other] - Keep Sofy appointment Print Language: [place] Disposition Disposition: Home, Self Care
[2024-03-28 04:13] VITALS: BP 131/86; PULSE 63; RESP 18; TEMP 36.7; O2SAT 100
--- NOTE | 2024-03-28 04:18 | ED.RN ---
This RN entered the patient's room to medicate the patient. The patient refused the prescribed medication stating that, that is what I stopped taking because it makes my panic attacks worse. notified. However, the patient drove herself to the ED and could not find a ride home. This RN educated the patient on the importance of not driving after an anxiety medication that could impact her ability to operate a vehicle. The patient stated well I won't take that medication, so if there is nothing more you guys can do then I will just go to my mom's house. This RN educated the patient on discharge instructions and the importance of following up with her counselor. notified.
== END 2024-03-28 04:24 | disposition home or self-care (01) ==
LOC: ED 04:20
PROVIDERS: Emergency Provider Emergency Medicine; Visit Provider Emergency Medicine
DX: F41.9 Anxiety disorder, unspecified (principal); Z79.899 Other long term (current) drug therapy; F17.290 Nicotine dependence, other tobacco product, uncomplicated
CPT/HCPCS: 99282